=== PATIENT | female | born 1970 | race Caucasian/White ===

== ENCOUNTER 2017-10-12 13:16 | Emergency (ER) | payer OTHER ==
[2017-10-12 13:21] VITALS: BMI 26.5
--- NOTE | 2017-10-12 13:45 | PDOC ---
History of Present Illness - General Chief Complaint: Pain Stated Complaint: ABD PAIN Time Seen by Provider: 10/12/17 13:44 - History of Present Illness Initial Comments: 47 year old female with PMH of NIDDM, and HLD presenting with left sided flank pain for the past three days. The pain was sudden onset and originally generalized but now in the left upper quadrant radiating to her left back and flank. Had one episode of nausea/ vomiting on Friday which has not returned since then. Ate all day yesterday without issue but came in today specifically because the left upper quadrant pain is worse. Denies fevers, chills, diarrhea, constipation, or other symptoms. 10/12/17 14:19 Past History - Past Medical History Allergies/Adverse Reactions: Allergies Allergy/AdvReac Type Severity Reaction Status Date / Time No Known Allergies Allergy Verified 10/12/17 13:21 Home Medications: Ambulatory Orders Cyclobenzaprine HCl [Flexeril -] 10 mg PO TID PRN #15 tablet 11/12/15 Cyclobenzaprine HCl [Flexeril -] 10 mg PO Q8H PRN #20 tablet 06/04/16 Naproxen [Naprosyn -] 500 mg PO BID PRN #14 tablet 06/04/16 Asthma: No Cancer: No Cardiac Disorders: No COPD: No Diabetes: No HTN: No Seizures: No Thyroid Disease: No - Immunization History Td Vaccination: (unknown) Immunization Up to Date: (unknown) - Suicide/Smoking/Psychosocial Hx Smoking Status: No Smoking History: Never smoked Years of Tobacco Use: 0 Have you smoked in the past 12 months: No Number of Cigarettes Smoked Daily: 0 Cigars Per Day: 0 Information on smoking cessation initiated: No Hx Alcohol Use: No Drug/Substance Use Hx: No Substance Use Type: None Hx Substance Use Treatment: No Review of Systems - Review of Systems Constitutional: No: Chills, Diaphoresis, Fever HEENTM: No: Blurred Vision, Double Vision Respiratory: No: Cough, Orthopnea, Shortness of Breath Cardiac (ROS): No: Chest Pain, Irregular Heart Rate ABD/GI: Yes: Nausea, Vomiting. No: Constipated, Diarrhea : No: Burning, Dysuria Musculoskeletal: No: Back Pain, Joint Pain Integumentary: No: Bruising, Erythema, Flushing, Lesions Neurological: No: Headache, Numbness *Physical Exam - Vital Signs Last Vital Signs Temp Pulse Resp BP Pulse Ox 98.2 F 63 17 162/92 100 10/12/17 13:19 10/12/17 13:19 10/12/17 13:19 10/12/17 13:19 10/12/17 13:19 - Physical Exam General Appearance: Yes: Nourished, Appropriately Dressed. No: Apparent Distress HEENT: positive: EOMI, VINNY, Normal ENT Inspection, Normal Voice Neck: positive: Trachea midline, Normal Thyroid, Supple. negative: Tender, Rigid Respiratory/Chest: positive: Lungs Clear, Normal Breath Sounds. negative: Chest Tender, Respiratory Distress, Accessory Muscle Use Cardiovascular: positive: Regular Rhythm, Regular Rate Gastrointestinal/Abdominal: positive: Normal Bowel Sounds, Flat, Soft. negative : Tender Musculoskeletal: positive: Normal Inspection, CVA Tenderness (left sided) Extremity: positive: Normal Capillary Refill, Normal Inspection, Normal Range of Motion. negative: Tender Integumentary: positive: Normal Color, Dry, Warm Neurologic: positive: Fully Oriented, Alert, Normal Mood/Affect, Normal Response , Motor Strength 5/5 ED Treatment Course - LABORATORY CBC & Chemistry Diagram: 10/12/17 14:20 10/12/17 14:20 Medical Decision Making - Medical Decision Making EKG demonstrating NSR without ST wave changes and T wave inversions in V1, V2, V3 that are consistent with changes on EKG in 2016. 10/12/17 14:27 *DC/Admit/Observation/Transfer - Referrals Referrals: Amy Herron [Primary Care Provider] - - Patient Instructions - Post Discharge Activity
--- NOTE | 2017-10-12 13:50 | PDOC ---
Attending Attestation - Resident Resident Name: Jessee Dominguez - ED Attending Attestation I have performed the following: I have examined & evaluated the patient, The case was reviewed & discussed with the resident, I agree w/resident's findings & plan, Exceptions are as noted - HPI HPI: 47 yo F hx DM, HL presents with L flank pain radiating to L side. Denies N/V, f/ c. +Constipation. - Physicial Exam PE: GENERAL: Awake, alert, and fully oriented, in no acute distress HEAD: No signs of trauma EYES: PERRLA, EOMI, sclera anicteric, conjunctiva clear ENT: Auricles normal inspection, hearing grossly normal, nares patent, oropharynx clear without exudates. Dry mucosa NECK: Normal ROM, supple, no lymphadenopathy, JVD, or masses LUNGS: Breath sounds equal, clear to auscultation bilaterally. No wheezes, and no crackles HEART: Regular rate and rhythm, normal S1 and S2, no murmurs, rubs or gallops ABDOMEN: Soft, +LUQ and L side pain, normoactive bowel sounds. No guarding, no rebound. No masses. +L CVAT. EXTREMITIES: Normal range of motion, no edema. No clubbing or cyanosis. No cords, erythema, or tenderness NEUROLOGICAL: Cranial nerves II through XII grossly intact. Normal speech, normal gait SKIN: Warm, Dry, normal turgor, no rashes or lesions noted. - Medical Decision Making 10/12/17 15:43 Pt with LUQ/L side/L flank pain, dysuria. UA wnl. Will obtain CT a/p to r/o stone.
[2017-10-12] MEDS ORDERED: MAG HYDROX/AL HYDROX/SIMETH 30 ML UNIT-DOSE CUP PO ONE (14:06)
[2017-10-12] MEDS ORDERED: FAMOTIDINE IV 20 MG/12 ML VIAL IVPUSH ONE (14:06)
[2017-10-12] MEDS ORDERED: SODIUM CHLORIDE 0.9% 500 ML INFUS.BAG IV ONE (14:06)
[2017-10-12] MEDS ORDERED: ONDANSETRON 4 MG/2 ML VIAL IVPUSH ONE (14:06)
[2017-10-12 14:39] LABS: BASO % 0.8 % (0-2.0); EOS % 1.3 % (0-4.5); HEMATOCRIT 38.7 % (32.4-45.2); HEMOGLOBIN 13.1 GM/dL (10.7-15.3); MCH 29.1 pg (25.7-33.7); MCHC 33.8 g/dl (32.0-36.0); MEAN CELL VOLUME 86.1 fl (80-96); MEAN PLT VOLUME 9.7 fl (7.5-11.1); MONO % 6.7 % (3.8-10.2); NEUT % 60.2 % (42.8-82.8); PLATELET COUNT 197 K/MM3 (134-434); RBC 4.49 M/mm3 (3.60-5.2); RDW 13.5 % (11.6-15.6); WHITE BLOOD COUNT 6.2 K/mm3 (4.0-10.0)
[2017-10-12 14:41] LABS: URINE APPEARANCE CLEAR; URINE BILIRUBIN NEGATIVE (<2.0 mg/dL); URINE BLOOD NEGATIVE (NEGATIVE); URINE COLOR LTYELLOW; URINE GLUCOSE (UA) NEGATIVE (NEGATIVE); URINE KETONE NEGATIVE (NEGATIVE); URINE LEUK ESTERASE NEGATIVE (NEGATIVE); URINE NITRITE NEGATIVE (NEGATIVE); URINE PROTEIN NEGATIVE (NEGATIVE); URINE UROBILINOGEN NEGATIVE mg/dL (0.2-1.0)
[2017-10-12] MEDS ORDERED: ONDANSETRON 4 MG/2 ML VIAL ONE (14:44)
[2017-10-12] MEDS ORDERED: MAG HYDROX/AL HYDROX/SIMETH 30 ML UNIT-DOSE CUP ONE (14:44)
[2017-10-12] MEDS ORDERED: FAMOTIDINE 20 MG/50 ML IVPB 20 MG/50 ML MG IVPB ONE (14:44)
--- NOTE | 2017-10-12 14:47 | EKG ---
Test Reason : Blood Pressure : / mmHG Vent. Rate : 068 BPM Atrial Rate : 068 BPM P-R Int : 142 ms QRS Dur : 084 ms QT Int : 432 ms P-R-T Axes : 066 002 041 degrees QTc Int : 459 ms NORMAL SINUS RHYTHM NORMAL ECG WHEN COMPARED WITH ECG OF 04-JUN-2016 18:32, NO SIGNIFICANT CHANGE WAS FOUND Confirmed by RJ FORTUNE MD ([id number]) on 10/12/2017 2:46:58 PM Referred By: Confirmed By:RJ FORTUNE MD
[2017-10-12 15:05] LABS: ALBUMIN 4.1 g/dl (3.4-5.0); ALK PHOS 110 U/L (45-117); ANION GAP 11 (8-16); BILIRUBIN,DIRECT < 0.2 mg/dL (0.0-0.2); BILIRUBIN,TOTAL 0.3 mg/dL (0.2-1.0); BLOOD UREA NITROGEN 22 mg/dL (7-18); CHLORIDE 102 mmol/L (98-107); CO2 26 mmol/L (21-32); CREATININE 0.8 mg/dL (0.55-1.02); GLUCOSE,RANDOM 156 mg/dL (74-106); LIPASE 65 U/L (73-393); POTASSIUM 4.3 mmol/L (3.5-5.1); SGOT/AST 19 U/L (15-37); SGPT/ALT 38 U/L (12-78); SODIUM 139 mmol/L (136-145); TOT PROT 7.4 g/dl (6.4-8.2)
[2017-10-12] MEDS ORDERED: SENNOSIDES 8.8 MG/5 ML BULK BOTTLE PO ONE (15:41)
[2017-10-12] MEDS ORDERED: KETOROLAC TROMETHAMINE 15 MG/ML VIAL IVPUSH ONE (15:42)
[2017-10-12] MEDS ORDERED: KETOROLAC TROMETHAMINE 15 MG/ML VIAL ONE (17:03)
--- NOTE | 2017-10-12 20:24 | PDOC ---
*Physical Exam - Vital Signs Last Vital Signs Temp Pulse Resp BP Pulse Ox 98.0 F 85 20 152/89 100 10/12/17 17:35 10/12/17 17:35 10/12/17 17:35 10/12/17 17:35 10/12/17 17:35 ED Treatment Course - LABORATORY CBC & Chemistry Diagram: 10/12/17 14:20 10/12/17 14:20 - ADDITIONAL ORDERS Additional order review: Laboratory Results 10/12/17 10/12/17 14:20 14:20 Sodium 139 Potassium 4.3 Chloride 102 Carbon Dioxide 26 Anion Gap 11 BUN 22 H Creatinine 0.8 Creat Clearance w eGFR > 60 Random Glucose 156 H Calcium 9.0 Total Bilirubin 0.3 D Direct Bilirubin < 0.2 AST 19 ALT 38 Alkaline Phosphatase 110 Total Protein 7.4 Albumin 4.1 Lipase 65 L Beta HCG, Quant < 1.0 Urine Color Ltyellow Urine Appearance Clear Urine pH 6.0 Ur Specific [place] 1.017 Urine Protein Negative Urine Glucose (UA) Negative Urine Ketones Negative Urine Blood Negative Urine Nitrite Negative Urine Bilirubin Negative Urine Urobilinogen Negative Ur Leukocyte Esterase Negative 10/12/17 14:20 RBC 4.49 MCV 86.1 MCHC 33.8 RDW 13.5 D MPV 9.7 D Neutrophils % 60.2 Lymphocytes % 31.0 D Monocytes % 6.7 Eosinophils % 1.3 Basophils % 0.8 - Medications Given in the ED: ED Medications Discontinued Medications Generic Name Dose Route Start Last Admin Trade Name Freq PRN Reason Stop Dose Admin Al Hydroxide/Mg Hydroxide 30 ml 10/12/17 14:06 10/12/17 14:42 Mylanta Oral Suspension - PO 10/12/17 14:07 30 ml ONCE ONE Administration Famotidine 20 mg in 12 mls @ 144 mls/hr 10/12/17 14:06 10/12/17 14:42 Pepcid 20 Mg/12 Ml Push IVPUSH 10/12/17 14:10 144 mls/hr ONCE ONE Administration Ketorolac Tromethamine 15 mg 10/12/17 15:42 10/12/17 17:08 Toradol Injection - IVPUSH 10/12/17 15:43 15 mg ONCE ONE Administration Ondansetron HCl 4 mg 10/12/17 14:06 10/12/17 14:42 Zofran Injection IVPUSH 10/12/17 14:07 4 mg ONCE ONE Administration Senna 8.8 mg 10/12/17 15:41 10/12/17 18:08 Senna Oral Solution - PO 10/12/17 15:42 8.8 mg HS ONE Administration Sodium Chloride 1,000 ml 10/12/17 14:06 10/12/17 14:42 Normal Saline - IV 10/12/17 14:07 1,000 ml ONCE ONE Administration Medical Decision Making - Medical Decision Making 10/12/17 19:22 The patient was signed out to me by Dr. Dominguez, day team. Pending CT. 10/12/17 20:18 CT results negative. Will d/c home. *DC/Admit/Observation/Transfer Diagnosis at time of Disposition: Abdominal pain Qualifiers: Abdominal location: right lower quadrant Qualified Code(s): R10.31 - Right lower quadrant pain - Discharge Dispostion Disposition: HOME Condition at time of disposition: Stable Admit: No - Referrals Referrals: Amy Herron [Primary Care Provider] - - Patient Instructions Printed Discharge Instructions: DI for Abdominal Pain-Adult Additional Instructions: Please return to the ER if you have any signs or symptoms of chest pain, shortness of breath, uncontrollable fever, chills, nausea, vomiting, numbness, tingling, or weakness in any part of your body, changes in vision, or slurred speech. Please follow up with your primary care physician in 2-3 days. Please return to the ER if symptoms persist, worsen, or new symptoms arise. Por favor regrese a la uziel de emergencia si tiene signos o sntomas de dolor en el pecho, dificultad para respirar, fiebre incontrolable, escalofros, n useas, vmitos, entumecimiento, hormigueo o debilidad en cualquier parte de patton cuerpo, cambios en la visin o dificultad para hablar. Por favor, karely un seguimiento con patton mdico de atencin primaria en 2-3 guerrero. Por favor regrese a la uziel de emergencias si los sntomas persisten, empeoran o surgen nuevos sntomas. Print Language: DANISH - Post Discharge Activity
[2017-10-12 20:26] VITALS: BP 152/85; PULSE 84; TEMP 97.8
== END 2017-10-12 20:33 | disposition home or self-care (01) ==
LOC: JER 13:16
PROC: 3E0333Z Introduction of Anti-inflammatory into Peripheral Vein, Percutaneous Approach (ICD-10-PCS; principal; 2017-10-12)
PROC: 3E033GC Introduction of Other Therapeutic Substance into Peripheral Vein, Percutaneous Approach (ICD-10-PCS; 2017-10-12)
PROC: 3E033GC Introduction of Other Therapeutic Substance into Peripheral Vein, Percutaneous Approach (ICD-10-PCS; 2017-10-12)
DX: R10.30 Lower abdominal pain, unspecified (principal); E11.9 Type 2 diabetes mellitus without complications; Z79.84 Long term (current) use of oral hypoglycemic drugs; E78.00 Pure hypercholesterolemia, unspecified
CPT/HCPCS: 36415; 74176; 80053; 81003; 82248; 83690; 84702; 85025; 93005; 93010; 96374; 96375; 99283-25

== ENCOUNTER 2017-12-05 10:07 | Emergency (ER) | payer SELFPAY ==
[2017-12-05 10:23] VITALS: BP 100/71; PULSE 68; TEMP 98.5; BMI 27.4
[2017-12-05] MEDS ORDERED: CYCLOBENZAPRINE HCL 10 MG TABLET (FP) PO ONE (11:45)
[2017-12-05] MEDS ORDERED: KETOROLAC TROMETHAMINE 60 MG/2 ML VIAL IM ONE (11:45)
[2017-12-05] MEDS ORDERED: CYCLOBENZAPRINE HCL 10 MG TABLET (FP) ONE (11:51)
[2017-12-05] MEDS ORDERED: KETOROLAC TROMETHAMINE 60 MG/2 ML VIAL ONE (11:51)
--- NOTE | 2017-12-05 11:52 | PDOC ---
History of Present Illness - General Chief Complaint: Pain Stated Complaint: NECK PAIN Time Seen by Provider: 12/05/17 10:43 History Source: Patient - History of Present Illness Timing/Duration: other Severity: severe Associated Symptoms: denies: chest pain, fever/chills, headaches, nausea/ vomiting, shortness of breath, weakness Past History - Past Medical History Allergies/Adverse Reactions: Allergies Allergy/AdvReac Type Severity Reaction Status Date / Time No Known Allergies Allergy Verified 12/05/17 10:20 Home Medications: Ambulatory Orders Cyclobenzaprine HCl [Flexeril 10 mg] 10 mg PO TID PRN #9 tablet 12/05/17 Ibuprofen [Motrin -] 2 tab PO QID #28 tablet 12/05/17 Asthma: No Cancer: No Cardiac Disorders: No COPD: No DVT: No Dementia: No Diabetes: No HTN: No Seizures: No Thyroid Disease: No - Immunization History Td Vaccination: (unknown) Immunization Up to Date: (unknown) - Suicide/Smoking/Psychosocial Hx Smoking Status: No Smoking History: Never smoked Years of Tobacco Use: 0 Have you smoked in the past 12 months: No Number of Cigarettes Smoked Daily: 0 Cigars Per Day: 0 Information on smoking cessation initiated: No Hx Alcohol Use: No Drug/Substance Use Hx: No Substance Use Type: None Hx Substance Use Treatment: No Review of Systems - Review of Systems Constitutional: No: Chills, Fever HEENTM: No: Blurred Vision Musculoskeletal: Yes: Neck Pain Neurological: No: Headache *Physical Exam - Vital Signs Last Vital Signs Temp Pulse Resp BP Pulse Ox 98.5 F 68 18 100/71 100 12/05/17 10:21 12/05/17 10:21 12/05/17 10:21 12/05/17 10:21 12/05/17 10:21 - Physical Exam General Appearance: Yes: Nourished, Appropriately Dressed, Mild Distress HEENT: positive: Normal Voice Neck: positive: Tender (to posterior neck diffusely, FROMI w/ pain on ROM), Supple, Other (no bruits over carotids) Respiratory/Chest: negative: Respiratory Distress Integumentary: positive: Dry, Warm Neurologic: positive: Fully Oriented, Alert, Normal Mood/Affect Medical Decision Making - Medical Decision Making 12/05/17 11:46 47-year-old female denies past medical history woke up with severe pain to posterior aspect of neck diffusely radiating to shoulders bilaterally x 5 days. Unable to describe pain, constant and worse w/ movement/palpation. Not taking anything for pain. No headache, dizziness, changes to vision. Denies any trauma. Patient stable but appears uncomfortable with diffuse tenderness to palpation to neck diffusely. Suspect most likely muscular pain at this time. Dc w/ pain control *DC/Admit/Observation/Transfer Diagnosis at time of Disposition: Neck muscle strain Qualifiers: Encounter type: initial encounter Qualified Code(s): S16.1XXA - Strain of muscle, fascia and tendon at neck level, initial encounter - Discharge Dispostion Disposition: HOME Condition at time of disposition: Improved - Prescriptions Prescriptions: Cyclobenzaprine HCl [Flexeril 10 mg] 10 mg PO TID PRN #9 tablet PRN Reason: Pain Ibuprofen [Motrin -] 2 tab PO QID #28 tablet - Referrals - Patient Instructions Printed Discharge Instructions: DI for Neck Sprain Additional Instructions: [place] los medicamentos segn las indicaciones y karely un seguimiento con patton PMD segn sea necesario Print Language: OCCITAN - Post Discharge Activity
== END 2017-12-05 11:57 | disposition home or self-care (01) ==
LOC: JERFT 10:07
PROC: 3E0233Z Introduction of Anti-inflammatory into Muscle, Percutaneous Approach (ICD-10-PCS; principal; 2017-12-05)
DX: S16.1XXA Strain of muscle, fascia and tendon at neck level, initial encounter (principal); X58.XXXA Exposure to other specified factors, initial encounter; Y93.89 Activity, other specified; Y92.89 Other specified places as the place of occurrence of the external cause; Y99.8 Other external cause status
CPT/HCPCS: 99281-25

== ENCOUNTER 2018-09-02 21:50 | Emergency (ER) | payer OTHER ==
[2018-09-02 21:59] VITALS: BP 128/82; PULSE 85; TEMP 97; BMI 27.4
[2018-09-02] MEDS ORDERED: KETOROLAC TROMETHAMINE 60 MG/2 ML VIAL IM ONE (22:20)
[2018-09-02] MEDS ORDERED: KETOROLAC TROMETHAMINE 60 MG/2 ML VIAL ONE (22:23)
--- NOTE | 2018-09-02 22:24 | PDOC ---
History of Present Illness - General Chief Complaint: Pain Stated Complaint: SHOULDER PAIN Time Seen by Provider: 09/02/18 22:13 - History of Present Illness Initial Comments: 09/02/18 22:21 48-year-old female without comorbidities presents for evaluation of right-sided neck pain and right shoulder pain 5 days. No systemic symptoms Past History - Past Medical History Allergies/Adverse Reactions: Allergies Allergy/AdvReac Type Severity Reaction Status Date / Time No Known Allergies Allergy Verified 12/05/17 10:20 Home Medications: Ambulatory Orders Cyclobenzaprine HCl [Flexeril 10 mg] 10 mg PO HS PRN #10 tablet 09/02/18 Ibuprofen [Motrin -] 600 mg PO TID #30 tablet 09/02/18 Asthma: No Cancer: No Cardiac Disorders: No COPD: No DVT: No Dementia: No Diabetes: No HTN: No Seizures: No Thyroid Disease: No - Immunization History Td Vaccination: (unknown) Immunization Up to Date: (unknown) - Suicide/Smoking/Psychosocial Hx Smoking Status: No Smoking History: Never smoked Years of Tobacco Use: 0 Have you smoked in the past 12 months: No Number of Cigarettes Smoked Daily: 0 Cigars Per Day: 0 Information on smoking cessation initiated: No Hx Alcohol Use: No Drug/Substance Use Hx: No Substance Use Type: None Hx Substance Use Treatment: No Review of Systems - Review of Systems Constitutional: No: Fever Musculoskeletal: Yes: Joint Pain, Muscle Pain, Neck Pain *Physical Exam - Vital Signs Last Vital Signs Temp Pulse Resp BP Pulse Ox 97 F L 85 20 128/82 99 09/02/18 21:57 09/02/18 21:57 09/02/18 21:57 09/02/18 21:57 09/02/18 21:57 - Physical Exam Comments: 09/02/18 22:21 HEAD: NC/AT EYES: Conjuntiva clear Ears: Canals and TM's normal NOSE: No d/c THROAT: Moist mucous membrances, oral pharanx clear, uvula midline NECK: Supple without adenopathy CARDIAC: S1 S2 LUNGS: CTA Full and Equal breath sounds ABDOMEN: Soft NT ND MS: Full ROM in all joints without edema NEUROLOGIC: No gross sensory or motor deficits, NVID SKIN: Normal color and temperature no lesions or rashes Cervical spine skin color and temperature are normal range of motion is slightly limited. There is 5 out of 5 strength in bilateral upper extremities without gross sensorimotor deficits. Tenderness over the right trapezium and levator scapula. She is neurovascularly intact. Moderate Sedation - Procedure Monitoring Vital Signs: Procedure Monitoring Vital Signs Temperature 97 F L 09/02/18 21:57 Pulse Rate 85 09/02/18 21:57 Respiratory Rate 20 09/02/18 21:57 Blood Pressure 128/82 09/02/18 21:57 O2 Sat by Pulse Oximetry (%) 99 09/02/18 21:57 *DC/Admit/Observation/Transfer Diagnosis at time of Disposition: Cervical strain - Discharge Dispostion Disposition: HOME Condition at time of disposition: Stable Decision to Admit order: No - Prescriptions Prescriptions: Cyclobenzaprine HCl [Flexeril 10 mg] 10 mg PO HS PRN #10 tablet PRN Reason: Muscle Spasms Ibuprofen [Motrin -] 600 mg PO TID #30 tablet - Referrals Referrals: Agapito Yoo MD [Staff Physician] - - Patient Instructions Printed Discharge Instructions: DI for Cervical Muscle Strain Additional Instructions: Please take the anti-inflammatory one tablet 3 times a day with food. Discontinue the medication if it bothers her stomach. Do not take any other anti -inflammatories other than what you are prescribed. He may take Tylenol as directed should you need more pain medication. The muscle relaxer is one tablet before bedtime and will make you sleepy. Follow-up with spine surgery in 1-2 days for further evaluation and treatment options and return to the emergency room for worsening symptoms. - Post Discharge Activity
== END 2018-09-02 22:38 | disposition home or self-care (01) ==
LOC: JERFT 21:50
PROC: 3E0233Z Introduction of Anti-inflammatory into Muscle, Percutaneous Approach (ICD-10-PCS; principal; 2018-09-02)
DX: S16.1XXA Strain of muscle, fascia and tendon at neck level, initial encounter (principal); X58.XXXA Exposure to other specified factors, initial encounter; Y93.89 Activity, other specified; Y92.89 Other specified places as the place of occurrence of the external cause
CPT/HCPCS: 96372; 99281-25

== ENCOUNTER 2019-08-25 09:11 | Emergency (ER) | payer OTHER ==
[2019-08-25 09:25] VITALS: BP 133/78; PULSE 85; TEMP 98.1; BMI 25.6
[2019-08-25] MEDS ORDERED: IBUPROFEN 600 MG TABLET (FP) PO ONE ×2 (10:28→10:33)
--- NOTE | 2019-08-25 10:34 | PDOC ---
History of Present Illness - General History Source: Patient Exam Limitations: No Limitations - History of Present Illness Initial Comments: 08/25/19 10:29 Patient is a 49-year-old female who presents to the ED with complaint of neck pain after a fall that she had a month ago. She states she fell down the steps and hit her head in the left occipital region. She had been feeling fine. She saw her primary doctor because her neck was hurting her and he was giving her Flexeril. She states the Flexeril does help her pain. She denies any visual changes, numbness, tingling, slurred speech or difficulty walking. She has not taken any Tylenol or ibuprofen for her pain. She has a history of hyperlipidemia and diabetes. She has no allergies to medications. <Florence Hughes - Last Filed: 08/25/19 10:29> <Chuy Hernández - Last Filed: 08/25/19 15:28> - General Chief Complaint: Headache Stated Complaint: HEAD INJURY Time Seen by Provider: 08/25/19 10:23 Past History - Past Medical History Asthma: No Cancer: No Cardiac Disorders: No COPD: No DVT: No Dementia: No Diabetes: No HTN: No Seizures: No Thyroid Disease: No - Immunization History Td Vaccination: (unknown) Immunization Up to Date: (unknown) - Psycho Social/Smoking Cessation Hx Smoking Status: No Smoking History: Never smoked Years of Tobacco Use: 0 Have you smoked in the past 12 months: No Number of Cigarettes Smoked Daily: 0 Cigars Per Day: 0 Hx Alcohol Use: No Drug/Substance Use Hx: No Substance Use Type: None Hx Substance Use Treatment: No <Florence Hughes - Last Filed: 08/25/19 10:29> <Chuy Hernández - Last Filed: 08/25/19 15:28> - Past Medical History Allergies/Adverse Reactions: Allergies Allergy/AdvReac Type Severity Reaction Status Date / Time No Known Allergies Allergy Verified 08/25/19 09:25 Home Medications: Ambulatory Orders Cyclobenzaprine HCl [Flexeril 10 mg] 10 mg PO HS PRN #10 tablet 09/02/18 Cyclobenzaprine HCl [Flexeril 10 mg] 10 mg PO BID PRN #30 tablet 08/25/19 Ibuprofen [Motrin -] 600 mg PO PRN 08/25/19 Ibuprofen [Motrin -] 600 mg PO TID PRN #21 tablet 08/25/19 Metformin HCl [Glucophage] 1,000 mg PO DAILY 08/25/19 Simvastatin 40 mg PO HS 08/25/19 Review of Systems - Review of Systems Comments:: 08/25/19 10:30 - Review of Systems Able to Perform ROS?: Yes Constitutional: No: Fever, Chills, Loss of Appetite, Night Sweats, Weakness HEENTM: No: Eye Pain, Vision changes, Ear Pain, Throat Pain, Throat Swelling, Mouth Pain, Difficulty Swallowing; + left sided neck pain Respiratory: No: Cough, Shortness of Breath, Wheezing, Sputum Production Cardiac (ROS): No: Chest Pain, Chest Tightness, Palpitations, Irregular Heart Beat, Edema ABD/GI: No: Nausea, Vomiting, Abdominal Pain, Diarrhea : No Dysuria, No Hematuria, No Frequency, No Urgency, No Vaginal Discharge/ Pain, No Penile Discharge/Pain Musculoskeletal: No: Muscle Pain, Back Pain, Joint Pain, Muscle Weakness, Neck Pain Integumentary: No: Lesions, Rash Neurological: No: Headache, Numbness, Tingling, Weakness, Speech Difficulties, minor head injury 1 month ago <Florence Hughes - Last Filed: 08/25/19 10:29> *Physical Exam - Vital Signs Last Vital Signs Temp Pulse Resp BP Pulse Ox 98.1 F 85 16 133/78 100 08/25/19 09:20 08/25/19 09:20 08/25/19 09:20 08/25/19 09:20 08/25/19 09:20 - Physical Exam 08/25/19 10:30 - Physical Exam General Appearance: Nourished, Appropriately Dressed, No Distress HEENT: EOMI, Normal Voice, No Pharyngeal Erythema, No Muffled/Hoarse voice, No Tonsillar Exudate, No Tonsillar Erythema, No Nasal Congestion, No Rhinorrhea, Hearing Grossly Normal, TMs Normal, No TM Bulging, No TM Dullness, No TM Erythema Neck: Supple, No Lymphadenopathy (R), No Lymphadenopathy (L), No Rigidity; left- sided neck tenderness to palpation along the trapezius muscle. Pain exacerbated with flexion of the neck. No midline tenderness appreciated. Respiratory/Chest: Lungs Clear, Normal Breath Sounds. No Respiratory Distress, No Accessory Muscle Use Cardiovascular: Regular Rhythm, Regular Rate, S1, S2 Gastrointestinal/Abdominal: Normal Bowel Sounds, Soft. Non-tender, No Guarding , No Rebound, No Rigidity Musculoskeletal: Normal Inspection. No Decreased Range of Motion Extremity: Normal Capillary Refill, Normal Inspection Integumentary: Normal Color, Dry. 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 Sensation intact to light touch. Normal gait. <Florence Hughes - Last Filed: 08/25/19 10:29> - Vital Signs Last Vital Signs Temp Pulse Resp BP Pulse Ox 98.1 F 85 16 133/78 100 08/25/19 09:20 08/25/19 09:20 08/25/19 09:20 08/25/19 09:20 08/25/19 09:20 <Chuy Hernández - Last Filed: 08/25/19 15:28> ED Treatment Course - Medications Given in the ED: ED Medications Discontinued Medications Generic Name Dose Route Start Last Admin Trade Name Jan PRN Reason Stop Dose Admin Ibuprofen 600 mg 08/25/19 10:28 08/25/19 10:35 Motrin - PO 08/25/19 10:29 600 mg ONCE ONE Administration <Chuy Hernández - Last Filed: 08/25/19 15:28> Medical Decision Making - Medical Decision Making 08/25/19 10:31 Assessment: Patient is a 49-year-old female with a left trapezius muscle spasm. Plan: -Motrin 600 mg given in the ED -Will DC the patient with a prescription for Flexeril as she only has 1 tablet left and Motrin -She should follow-up with her primary doctor within 1 to 2 days for repeat evaluation. <Florence Hughes - Last Filed: 08/25/19 10:29> - Medical Decision Making 08/25/19 15:28 I reviewed the case of the mid-level practitioner and was available for consultation while in the emergency department suspect residents here <Chuy Hernández - Last Filed: 08/25/19 15:28> Discharge - Discharge Information Problems reviewed: Yes <Florence Hughes - Last Filed: 08/25/19 10:29> <Chuy Hernández - Last Filed: 08/25/19 15:28> - Discharge Information Clinical Impression/Diagnosis: Muscle spasms of neck Condition: Stable Disposition: HOME - Additional Discharge Information Prescriptions: Cyclobenzaprine HCl [Flexeril 10 mg] 10 mg PO BID PRN #30 tablet PRN Reason: Muscle Spasms Ibuprofen [Motrin -] 600 mg PO TID PRN #21 tablet PRN Reason: Pain - Follow up/Referral Referrals: Chuy Perkins MD [Primary Care Provider] - 3 days - Patient Discharge Instructions Patient Printed Discharge Instructions: DI for Neck Pain, DI for Muscle Spasm Additional Instructions: Get plenty of rest and do gentle stretching exercises. Take the Motrin as needed for pain and swelling. Take the Flexeril as needed for muscle spasm. Follow-up with your primary doctor within 1 to 2 days for repeat evaluation. Print Language: ROMANSH - Post Discharge Activity Work/Back to School Note: Back to Work
== END 2019-08-25 10:40 | disposition home or self-care (01) ==
LOC: JER 09:11
DX: M62.830 Muscle spasm of back (principal)
CPT/HCPCS: 99283-25

== ENCOUNTER 2020-11-08 11:39 | Emergency (ER) | payer OTHER ==
[2020-11-08 11:46] VITALS: BP 133/78; PULSE 88; TEMP 98.5; BMI 25.6
[2020-11-08] MEDS ORDERED: KETOROLAC TROMETHAMINE 30 MG/1 ML VIAL IM ONE (12:14)
[2020-11-08] MEDS ORDERED: METHOCARBAMOL 500 MG TABLET PO ONE (12:14)
[2020-11-08] MEDS ORDERED: METHOCARBAMOL 500 MG TABLET ONE (12:18)
[2020-11-08] MEDS ORDERED: KETOROLAC TROMETHAMINE 30 MG/1 ML VIAL ONE (12:19)
== END 2020-11-08 12:25 | disposition home or self-care (01) ==
LOC: JERFT 11:39
PROC: 3E0233Z Introduction of Anti-inflammatory into Muscle, Percutaneous Approach (ICD-10-PCS; principal; 2020-11-08)
DX: M62.838 Other muscle spasm (principal)
CPT/HCPCS: 99284-25

== ENCOUNTER 2021-03-24 09:45 | Emergency (ER) | payer OTHER ==
[2021-03-24 09:52] VITALS: BP 111/71; PULSE 75; TEMP 98; BMI 25.6
[2021-03-24] MEDS ORDERED: KETOROLAC TROMETHAMINE 60 MG/2 ML VIAL IM ONE (10:25)
[2021-03-24] MEDS ORDERED: KETOROLAC TROMETHAMINE 60 MG/2 ML VIAL ONE (11:02)
== END 2021-03-24 11:32 | disposition home or self-care (01) ==
LOC: JER 09:45
PROC: 3E0233Z Introduction of Anti-inflammatory into Muscle, Percutaneous Approach (ICD-10-PCS; principal; 2021-03-24)
DX: M54.2 Cervicalgia (principal)
CPT/HCPCS: 99283-25

== ENCOUNTER 2022-05-11 11:17 | Emergency (ER) | payer OTHER ==
[2022-05-11 12:11] VITALS: BP 103/67; PULSE 86; RESP 20; TEMP 97.1; BMI 25.9
[2022-05-11] MEDS ORDERED: KETOROLAC TROMETHAMINE 30 MG/1 ML VIAL IM ONE (13:17)
[2022-05-11] MEDS ORDERED: LIDOCAINE 5% TOPICAL PATCH TP ONE (13:17)
[2022-05-11] MEDS ORDERED: LIDOCAINE 5% TOPICAL PATCH ONE (13:42)
[2022-05-11] MEDS ORDERED: KETOROLAC TROMETHAMINE 30 MG/1 ML VIAL ONE (13:42)
[2022-05-11] MEDS ORDERED: LIDOCAINE PATCH REMOVAL MC SCH (22:00)
== END 2022-05-11 13:51 | disposition home or self-care (01) ==
LOC: JER 11:17
PROC: 3E0233Z Introduction of Anti-inflammatory into Muscle, Percutaneous Approach (ICD-10-PCS; principal; 2022-05-11)
DX: M79.10 Myalgia, unspecified site (principal)
CPT/HCPCS: 93005; 93010; 99284-25

== ENCOUNTER 2022-12-04 11:33 | Emergency (ER) | payer OTHER ==
[2022-12-04 11:42] VITALS: TEMP 98; BMI 25.6
[2022-12-04] MEDS ORDERED: KETOROLAC TROMETHAMINE 30 MG/1 ML VIAL IVPUSH ONE (12:13)
[2022-12-04] MEDS ORDERED: SODIUM CHLORIDE 1,000 ML IV STA ×2 (12:13→13:38)
[2022-12-04] MEDS ORDERED: KETOROLAC TROMETHAMINE 30 MG/1 ML VIAL ONE (12:43)
[2022-12-04 13:07] LABS: BASO % 0.6 % (0-2.0); EOS % 2.9 % (0-4.5); HEMATOCRIT 34.6 % (32.4-45.2); HEMOGLOBIN 11.8 GM/dL (10.7-15.3); LYMPH % 39.6 % (8-40); MCH 28.8 pg (25.7-33.7); MCHC 34.1 g/dl (32.0-36.0); MEAN CELL VOLUME 84.3 fl (80-96); MEAN PLT VOLUME 9.4 fl (7.5-11.1); MONO % 8.1 % (3.8-10.2); NEUT % 48.8 % (42.8-82.8); PLATELET COUNT 190 10^3/uL (134-434); RBC 4.11 M/mm3 (3.60-5.2); RDW 14.3 % (11.6-15.6); WHITE BLOOD COUNT 4.8 K/mm3 (4.0-10.0)
[2022-12-04 13:27] LABS: POTASSIUM 4.3 mmol/L (3.5-5.1)
[2022-12-04 13:29] LABS: CALCIUM 9.7 mg/dL (8.5-10.1)
[2022-12-04 13:30] LABS: ALBUMIN 3.9 g/dl (3.4-5.0); BLOOD UREA NITROGEN 12.4 mg/dL (7-18)
[2022-12-04 13:33] LABS: CREATININE 0.8 mg/dL (0.55-1.3)
[2022-12-04 13:34] LABS: BILIRUBIN,TOTAL 0.3 mg/dL (0.2-1); TOT PROT 7.3 g/dl (6.4-8.2)
[2022-12-04 13:52] VITALS: BP 101/60; PULSE 69; RESP 16
== END 2022-12-04 13:52 | disposition home or self-care (01) ==
LOC: JER 11:33
PROC: 3E0233Z Introduction of Anti-inflammatory into Muscle, Percutaneous Approach (ICD-10-PCS; principal; 2022-12-04)
PROC: 3E0337Z Introduction of Electrolytic and Water Balance Substance into Peripheral Vein, Percutaneous Approach (ICD-10-PCS; 2022-12-04)
DX: R07.89 Other chest pain (principal); X50.0XXA Overexertion from strenuous movement or load, initial encounter
CPT/HCPCS: 36415; 71046-TC-FY; 80053; 83735; 84484; 85025; 93005; 93010; 99285-25

== ENCOUNTER 2023-06-17 09:12 | Emergency (ER) | payer OTHER ==
[2023-06-17 09:31] VITALS: BP 119/62; PULSE 89; RESP 17; TEMP 97.8; BMI 26.5
[2023-06-17] MEDS ORDERED: guaiFENesin 200 MG/10 ML 10 ML UNIT-DOSE CUPS PO ONE (10:04)
[2023-06-17] MEDS ORDERED: ACETAMINOPHEN 325 MG TABLET (FP) PO ONE (10:04)
[2023-06-17] MEDS ORDERED: SODIUM CHLORIDE FOR INHALATION 3 ML VIAL.NEB IH ONE (10:10)
[2023-06-17] MEDS ORDERED: ACETAMINOPHEN 325 MG TABLET (FP) ONE (10:56)
[2023-06-17] MEDS ORDERED: guaiFENesin 200 MG/10 ML 10 ML UNIT-DOSE CUPS ONE (10:58)
== END 2023-06-17 12:25 | disposition home or self-care (01) ==
LOC: JERFT 09:12 → JER 09:12 → JERFT 12:25
PROC: 3E0F7GC Introduction of Other Therapeutic Substance into Respiratory Tract, Via Natural or Artificial Opening (ICD-10-PCS; principal; 2023-06-17)
DX: R05.9 Cough, unspecified (principal); Z20.822 Contact with and (suspected) exposure to COVID-19
CPT/HCPCS: 0241U-QW; 71046-TC-FY; 99284-25

== ENCOUNTER 2023-12-18 08:03 | Emergency (ER) | payer OTHER ==
[2023-12-18 08:10] VITALS: BP 113/80; PULSE 60; RESP 20; TEMP 97.6; BMI 25.6
[2023-12-18] MEDS: IBUPROFEN 400 MG TABLET (FP) PO ONE (09:37)
[2023-12-18] MEDS: ACETAMINOPHEN 500 MG TABLET (FP) PO ONE (10:12)
== END 2023-12-18 10:17 | disposition home or self-care (01) ==
LOC: JER 08:03
DX: R07.89 Other chest pain (principal)
CPT/HCPCS: 36415; 71046-TC-FY; 84484; 93005; 93010; 99285-25

== ENCOUNTER 2025-02-22 14:34 | Emergency (ER) | payer OTHER ==
[2025-02-22 14:42] VITALS: BP 113/68; PULSE 73; RESP 18; TEMP 98.3; BMI 25.9
[2025-02-22] MEDS ORDERED: ACETAMINOPHEN INJECTION 100 ML ONE (15:38)
[2025-02-22] MEDS: SODIUM CHLORIDE 1,000 ML IV STA (15:51)
[2025-02-22] MEDS: ACETAMINOPHEN 1000 MG/100 ML BAG IVPB ONE (15:52)
[2025-02-22 15:56] LABS: MCHC 32.1 g/dl (32.2-35.5); MEAN CELL VOLUME 88.0 fl (79.4-94.8); MEAN PLT VOLUME 11.5 fl (9.4-12.3); RDW 13.1 % (12.3-16.6); URINE APPEARANCE CLEAR; URINE BILIRUBIN NEGATIVE (NEGATIVE); URINE COLOR YELLOW; URINE GLUCOSE (UA) NEGATIVE (NEGATIVE); URINE KETONE NEGATIVE (NEGATIVE); URINE LEUK ESTERASE NEGATIVE (NEGATIVE); URINE NITRITE NEGATIVE (NEGATIVE); URINE PROTEIN NEGATIVE (NEGATIVE); URINE UROBILINOGEN 1.0 mg/dL (0.2-1.0)
[2025-02-22 16:19] LABS: GLUCOSE,RANDOM 167.0 mg/dL (74-106); TOT PROT 7.0 g/dl (6.4-8.2)
[2025-02-22 16:20] LABS: CO2 26.0 mmol/L (21-32)
[2025-02-22 16:22] LABS: ALK PHOS 70.0 U/L (40-150)
[2025-02-22 16:24] LABS: SGPT/ALT 37.0 U/L (0-55)
[2025-02-22 16:25] LABS: CREATININE 0.63 mg/dL (0.55-1.3); SGOT/AST 26.0 U/L (5-34)
== END 2025-02-22 21:30 | disposition home or self-care (01) ==
LOC: JER 14:34
PROC: 3E033NZ Introduction of Analgesics, Hypnotics, Sedatives into Peripheral Vein, Percutaneous Approach (ICD-10-PCS; principal; 2025-02-22)
PROC: 3E0337Z Introduction of Electrolytic and Water Balance Substance into Peripheral Vein, Percutaneous Approach (ICD-10-PCS; 2025-02-22)
DX: K52.9 Noninfective gastroenteritis and colitis, unspecified (principal); R10.12 Left upper quadrant pain
CPT/HCPCS: 36415; 74177-TC; 80053; 81003; 83690; 84484; 85025; 87086; 93005; 93010; 96361; 96374; 99285-25; Q9967